=== PATIENT | female | born 1980 | race Caucasian/White ===

== ENCOUNTER 2017-04-10 17:53 | Emergency (ER) | payer SELFPAY ==
[2017-04-10 17:59] VITALS: BP 152/98; BMI 33.6
--- NOTE | 2017-04-10 20:28 | DR.GENAD ---
HPI - PCP Primary Care Physician: NFD - Complaint/Symptoms Chief Complaint Doctors Comments: Patient was treated at [place] for mastitis and is unhappy because a I&D was done. She was given bactrim Ds and now states that she has sore on other parts of her body (bilateral forearms). She is afebrile Chief Complaint:: KNOTS UNDER BREAST WAS EXCISED FRIST OF WEEK AND NOW HAS KNOTS ALL OVER BODY, RUNNING FEVER AND N/V Self Treatment fo Chief Complaint: MOTRIN, - Source History Provided: Patient, Parent - Mode of Arrival Mode of Arrival: Ambulatory - Timing Onset of Chief Complaint: 04/08/17 PMH - PMH Past Medical History: Yes Past Medical History: Anxiety, Headaches Past Surgical History: Yes Surgical History: Cholecystectomy Past Surgical History Comment: R OVARY, TUBAL - Family History History of Family Medical Conditions: Yes Family Medical History: Diabetes Mellitus, Cancer, [place], Coronary Artery Disease, Hypertension - Social History Does any household member use tobacco: Yes Alcohol Use: None Do you use any recreational Drugs:: No Lives With: Spouse Lives Where: Home - infectious screening In the last 2 months have you had wt loss of >10#?: NO Have you had fever, night sweats or hemotysis?: No Have you traveled outside the country in the last 6 months?: No Isolation: Standard ROS - Review of Systems Constitutional: No Symptoms Reported Eyes: No Symptoms Reported ENTM: No Symptoms Reported Respiratoy: No Symptoms Reported Cardiovascular: No Symptoms Reported Gastrointestinal/Abdominal: No Symptoms Reported Genitourinary: No Symptoms Reported Neurological: No Symptoms Reported Musculoskeletal: No Symptoms Reported Integumentary: No Symptoms Reported Hematologic/Lymphatic: No Symptoms Reported Endocrine: No Symptoms Reported Psychiatric: No Symptoms Reported All Other Systems: Reviewed and Negative PE - Vital Signs Vitals: Temperature 98.2 F Pulse Rate 103 Respiratory Rate 16 Blood Pressure 152/98 O2 Sat by Pulse Oximetry 97 - General Limitations: No Limitations General Appearance: Alert - Head Head Exam: Normal Inspection - Eyes Eye exam: Normal Appearance, PERRL, EOMI - ENT ENT Exam: Normal Exam External Ear Exam: Normal External Inspection TM/Canal Exam: Bilateral Normal Nose Exam: Normal Nose Exam Mouth Exam: Normal Inspection Throat Exam: Normal Inspection - Neck Neck Exam: Normal Inspection - Chest Chest Inspection: Symmetric Chest Wall Rise, Other (Right inferior breast s/p I& D with minimal area of erythema, non tender) - Respiratory Respiratory Exam: Normal Lung Sounds Bilat Respiratory Exam: Bilateral Clear to Auscultation - Cardiovascular Cardiovascular Exam: Regular Rate - Abdominal Exam Abdominal Exam: Normal Inspection, Normal Bowel Sounds Abdominal Tenderness: negative: RUQ, RLQ, LUQ, LLQ, Epigastrium, Suprapubic, Diffuse, Mild, Moderate, Severe, Other - Extremities Extremities Exam: Normal Inspection - Back Back Exam: Normal Inspection - Neurologic Neurological Exam: Alert, Oriented X3, CN II-XII Intact - Psychiatric Psychiatric Exam: Normal Affect Course - Treatment Treatment: Ceftriaxone 1gm IV - Reevaluation 1st: Improved ROR - Labs Reviewed Result Diagrams: 04/10/17 20:41 Laboratory: WBC 16.7 X10^3/uL (3.6-10.0) H 04/10/17 20:41 RBC 4.34 X10^6/uL (3.5-5.4) 04/10/17 20:41 Hgb 13.0 g/dL (12.0-16.0) 04/10/17 20:41 Hct 38.3 % (36.0-47.0) 04/10/17 20:41 MCV 88.3 fL (80.0-100.0) 04/10/17 20:41 MCH 29.9 pg (27.0-34.0) 04/10/17 20:41 MCHC 33.9 g/dL (33.0-35.0) 04/10/17 20:41 RDW 15.2 % (11.6-16.5) 04/10/17 20:41 Plt Count 277 X10^3/uL (150.0-450.0) 04/10/17 20:41 MPV 10.7 fL (7.4-11.0) 04/10/17 20:41 Neut % 75.1 % (42.0-75.0) H 04/10/17 20:41 Lymph % 20.3 % (21.0-51.0) L 04/10/17 20:41 [place] % 4.1 % (0.0-13.0) 04/10/17 20:41 Eos % 0.0 % (0.9-2.9) L 04/10/17 20:41 Baso % 0.5 % (0.2-1.0) 04/10/17 20:41 Neut # 12.5 x10^3/uL (2.2-4.8) H 04/10/17 20:41 Lymph # 3.4 X10^3/uL (1.3-2.9) H 04/10/17 20:41 [place] # 0.7 x10^3/uL (0.3-0.8) 04/10/17 20:41 Eos # 0.0 x10^3/uL (0.0-0.2) 04/10/17 20:41 Baso # 0.1 X10^3/uL (0.0-0.1) 04/10/17 20:41 Absolute Nucleated RBC 0.0 /100WBC 04/10/17 20:41 C-Reactive Protein 17.00 mg/L (0-3.0) H 04/10/17 20:41 Specimen Type Clean catch urine 04/10/17 20: Urine Color Yellow (YELLOW) 04/10/17 20: Urine Appearance Hazy (CLEAR) 04/10/17 20:27 Urine pH 6.5 (5.0 - 8.0) 04/10/17 20: Ur Specific [place] 1.005 (1.000-1.030) 04/10/17 20: Urine Protein Negative (NEGATIVE) 04/10/17 20: Urine Glucose (UA) 1+ (NEGATIVE) 04/10/17 20: Urine Ketones Negative (NEGATIVE) 04/10/17 20: Urine Occult Blood 1+ (NEGATIVE) 04/10/17 20: Urine Nitrite Negative (NEGATIVE) 04/10/17 20: Urine Bilirubin Negative (NEGATIVE) 04/10/17 20:27 Urine Urobilinogen Normal (NORMAL) 04/10/17 20: Ur Leukocyte Esterase Negative (NEGATIVE) 04/10/17 20: Urine RBC 0-2 /HPF (NEGATIVE) 04/10/17 20: Urine WBC 0-2 /HPF (NEGATIVE) 04/10/17 20:27 Ur Squamous Epith Cells Few /HPF (NEGATIVE) 04/10/17 20:27 Urine Bacteria 1+ /HPF (NEGATIVE) 04/10/17 20:27 Ur Culture Indicated? No/not indicated 04/10/17 20:27 - Diagnosis Discharge Problem: Mastitis - Discharge Plan Condition: Stable - Follow ups/Referrals Follow ups/Referrals: NFD,None [Primary Care Provider] - 3 days - Instructions
[2017-04-10 20:36] LABS: BILIRUBIN,URINE NEGATIVE (NEGATIVE); BLOOD/HEMOGLOBIN,URINE 1+ (NEGATIVE); GLUCOSE, URINE 1+ (NEGATIVE); KETONES,URINE NEGATIVE (NEGATIVE); LEUKOCYTE ESTERASE ,URINE NEGATIVE (NEGATIVE); NITRITES,URINE NEGATIVE (NEGATIVE); PH,URINE 6.5 (5.0 - 8.0); PROTEIN,URINE NEGATIVE (NEGATIVE); UROBILINOGEN,URINE NORMAL (NORMAL)
[2017-04-10 20:45] LABS: APPEARANCE,URINE HAZY (CLEAR); COLOR,URINE YELLOW (YELLOW)
[2017-04-10 20:46] LABS: BACTERIA,URINE 1+ /HPF (NEGATIVE); RBC,URINE 0-2 /HPF (NEGATIVE); SQUAMOUS EPITHELIAL CELL,UR FEW /HPF (NEGATIVE)
[2017-04-10 20:48] LABS: BASOPHILS # (AUTO) 0.1 X10^3/uL (0.0-0.1); BASOPHILS % (AUTO) 0.5 % (0.2-1.0); HEMATOCRIT 38.3 % (36.0-47.0); LYMPHOCYTES # (AUTO) 3.4 X10^3/uL (1.3-2.9); LYMPHOCYTES % (AUTO) 20.3 % (21.0-51.0); MEAN CORPUSCULAR HEMOGLOBIN 29.9 pg (27.0-34.0); MEAN CORPUSCULAR HGB CONC 33.9 g/dL (33.0-35.0); MEAN CORPUSCULAR VOLUME 88.3 fL (80.0-100.0); MEAN PLATELET VOLUME 10.7 fL (7.4-11.0); MONOCYTES # (AUTO) 0.7 x10^3/uL (0.3-0.8); MONOCYTES % (AUTO) 4.1 % (0.0-13.0); NEUTROPHILS # (AUTO) 12.5 x10^3/uL (2.2-4.8); NEUTROPHILS % (AUTO) 75.1 % (42.0-75.0); PLATELET COUNT 277 X10^3/uL (150.0-450.0); RED BLOOD COUNT 4.34 X10^6/uL (3.5-5.4); RED CELL DISTRIBUTION WIDTH 15.2 % (11.6-16.5); WHITE BLOOD COUNT 16.7 X10^3/uL (3.6-10.0)
[2017-04-10] MEDS ORDERED: CLEOCIN 600 MG IV PREMIX 600 MG/50 ML BAG IV ONE (21:29)
[2017-04-10] MEDS ORDERED: CLEOCIN VIAL 600 MG ONE (21:44)
[2017-04-10] MEDS ORDERED: NS 50 ML IV 50 ML IV ONE (21:45)
== END 2017-04-10 22:45 | disposition home or self-care (01) ==
LOC: ER 18:08
DX: N61.0 Mastitis without abscess (principal)
CPT/HCPCS: 36415; 81001; 85025; 86140; 96365; 96367; 96374; 99283; A4222; S0077

== ENCOUNTER 2017-05-03 15:34 | Emergency (ER) | payer SELFPAY ==
[2017-05-03 15:44] VITALS: BP 158/88; BMI 34.5
[2017-05-03 16:14] LABS: BASOPHILS # (AUTO) 0.2 X10^3/uL (0.0-0.1); BASOPHILS % (AUTO) 1.2 % (0.2-1.0); EOSINOPHILS # (AUTO) 0.4 x10^3/uL (0.0-0.2); EOSINOPHILS % (AUTO) 2.9 % (0.9-2.9); HEMATOCRIT 38.3 % (36.0-47.0); HEMOGLOBIN 13.2 g/dL (12.0-16.0); LYMPHOCYTES # (AUTO) 3.4 X10^3/uL (1.3-2.9); MEAN CORPUSCULAR HGB CONC 34.5 g/dL (33.0-35.0); MEAN CORPUSCULAR VOLUME 86.9 fL (80.0-100.0); MEAN PLATELET VOLUME 10.1 fL (7.4-11.0); MONOCYTES # (AUTO) 0.8 x10^3/uL (0.3-0.8); MONOCYTES % (AUTO) 5.5 % (0.0-13.0); NEUTROPHILS % (AUTO) 65.4 % (42.0-75.0); PLATELET COUNT 267 X10^3/uL (150.0-450.0); RED CELL DISTRIBUTION WIDTH 14.8 % (11.6-16.5); WHITE BLOOD COUNT 13.7 X10^3/uL (3.6-10.0)
--- NOTE | 2017-05-03 16:32 | DR.GENAD ---
HPI - PCP Primary Care Physician: NFD - Complaint/Symptoms Chief Complaint:: PT STATES " I WAS SEEN A MONTH AGO AND MY WHITE WAS UP AND DR. ROBBINS TOLD ME TO COME BACK IN A FEW WEEKS AND HAVE MY BLOOD CHECKED ".. I HAVE FEVER, AND KNOTS. - Nurses notes reviewed Nurses Notes Review: Yes - Source History Provided: Patient - Mode of Arrival Mode of Arrival: Ambulatory - Timing Onset of Chief Complaint: 04/03/17 PMH - PMH Past Medical History: No Past Medical History: Anxiety, Headaches Past Surgical History: Yes Surgical History: Cholecystectomy Past Surgical History Comment: TUBAL, RIGHT OVER REMOVED .. - Family History History of Family Medical Conditions: Yes Family Medical History: Diabetes Mellitus, Cancer, [place], Coronary Artery Disease, Hypertension Family Medical History Comment: HEART DISEASE. - Social History Does patient currently use any type of tobacco product: No Have you used tobacco products in the last 12 months: No Type of Tobacco Use: None Does any household member use tobacco: No Alcohol Use: None Do you use any recreational Drugs:: No Lives With: Family Lives Where: Home - infectious screening In the last 2 months have you had wt loss of >10#?: NO Have you had fever, night sweats or hemotysis?: No Have you traveled outside the country in the last 6 months?: No Isolation: Standard PE - Vital Signs Vitals: Temperature 98.5 F Pulse Rate 94 Respiratory Rate 22 Blood Pressure 158/88 O2 Sat by Pulse Oximetry 98 ROR - Labs Reviewed Result Diagrams: 05/03/17 16:06 Laboratory: WBC 13.7 X10^3/uL (3.6-10.0) H 05/03/17 16:06 RBC 4.40 X10^6/uL (3.5-5.4) 05/03/17 16:06 Hgb 13.2 g/dL (12.0-16.0) 05/03/17 16:06 Hct 38.3 % (36.0-47.0) 05/03/17 16:06 MCV 86.9 fL (80.0-100.0) 05/03/17 16:06 MCH 30.0 pg (27.0-34.0) 05/03/17 16:06 MCHC 34.5 g/dL (33.0-35.0) 05/03/17 16:06 RDW 14.8 % (11.6-16.5) 05/03/17 16:06 Plt Count 267 X10^3/uL (150.0-450.0) 05/03/17 16:06 MPV 10.1 fL (7.4-11.0) 05/03/17 16:06 Neut % 65.4 % (42.0-75.0) 05/03/17 16:06 Lymph % 25.0 % (21.0-51.0) 05/03/17 16:06 [place] % 5.5 % (0.0-13.0) 05/03/17 16:06 Eos % 2.9 % (0.9-2.9) 05/03/17 16:06 Baso % 1.2 % (0.2-1.0) H 05/03/17 16:06 Neut # 9.0 x10^3/uL (2.2-4.8) H 05/03/17 16:06 Lymph # 3.4 X10^3/uL (1.3-2.9) H 05/03/17 16:06 [place] # 0.8 x10^3/uL (0.3-0.8) 05/03/17 16:06 Eos # 0.4 x10^3/uL (0.0-0.2) H 05/03/17 16:06 Baso # 0.2 X10^3/uL (0.0-0.1) H 05/03/17 16:06 Absolute Nucleated RBC 0.0 /100WBC 05/03/17 16:06 C-Reactive Protein 10.30 mg/L (0-3.0) H 05/03/17 16:08 - Diagnosis Discharge Problem: Abnormal labor - Discharge Plan Condition: Stable - Follow ups/Referrals Follow ups/Referrals: NFD,None [Primary Care Provider] - 3 days MARIAN GARCIA [STAFF PHYSICIAN] - 3 days - Instructions Instructions: Mastitis, [id number] Additional Instructions: RETURN TO ED IF WORSE.
== END 2017-05-03 17:53 | disposition home or self-care (01) ==
LOC: ER 15:46
DX: O62.9 Abnormality of forces of labor, unspecified (principal); Z3A.00 Weeks of gestation of pregnancy not specified
CPT/HCPCS: 36415; 85025; 86140; 99282